=== PATIENT | female | born 1955 | race African-American/Black ===

== ENCOUNTER 2019-07-01 17:24 | Emergency (ER) | payer OTHER, MEDICAID ==
[~2019-07-01] VITALS: Ht 165.1 cm; Wt 108.2 kg
[2019-07-01 17:33] VITALS: BP 150/87
[2019-07-01] MEDS ORDERED: VITAD1000 PO (17:47)
[2019-07-01] MEDS ORDERED: LORA10TA7 PO (17:47)
[2019-07-01] MEDS ORDERED: AMLO10TA7 PO (17:47)
[2019-07-01] MEDS ORDERED: FURO40 PO (17:47)
[2019-07-01] MEDS ORDERED: ATOR40TA28 PO (17:47)
[2019-07-01] MEDS ORDERED: CALC-1038 PO (17:47)
== END 2019-07-01 20:00 | disposition left against medical advice (07) ==
LOC: EMS 17:25
DX: R22.0 Localized swelling, mass and lump, head (principal); I10 Essential (primary) hypertension; E78.00 Pure hypercholesterolemia, unspecified; Z53.21 Procedure and treatment not carried out due to patient leaving prior to being seen by health care provider